=== PATIENT | female | born 1975 | race Caucasian/White ===

== ENCOUNTER 2021-06-20 16:31 | Emergency (ER) | payer BC ==
[2021-06-20 17:44] VITALS: BP 146/102; PULSE 82; RESP 18; TEMP 98.5
[2021-06-20] MEDS ORDERED: HYDROmorphone 1 MG/ML 1 ML SYRINGE IM STA (17:45)
--- NOTE | 2021-06-20 17:45 | ED ---
General Adult HPI - General Stated complaint: rt sided rib pain Time Seen by Provider: 06/20/21 17:42 Source: patient, RN notes reviewed Mode of arrival: ambulatory Limitations: no limitations - History of Present Illness Initial comments: 46-year-old female presents emergency Department chief complaint of right-sided rib pain. Patient states she was twisting, nor felt a pop. Patient states she's had a fracture which feels very similar. Patient has pain with movement, pain with deep inspiration. No major trauma no swelling or bruising of her abdomen. No chest pain otherwise no fevers chills - Related Data Allergies Allergy/AdvReac Type Severity Reaction Status Date / Time No Known Allergies Allergy Verified 06/20/21 17:41 Review of Systems ROS Statement: Those systems with pertinent positive or pertinent negative responses have been documented in the HPI. ROS Other: All systems not noted in ROS Statement are negative. General Exam General appearance: alert, in no apparent distress Head exam: Present: atraumatic, normocephalic, normal inspection Neck exam: Present: normal inspection, full ROM. Absent: tenderness, meningismus, lymphadenopathy Respiratory exam: Present: normal lung sounds bilaterally, chest wall tenderness. Absent: respiratory distress, wheezes, rales, rhonchi, stridor Cardiovascular Exam: Present: regular rate, normal rhythm, normal heart sounds. Absent: systolic murmur, diastolic murmur, rubs, gallop, clicks GI/Abdominal exam: Present: soft, normal bowel sounds. Absent: distended, tenderness, guarding, rebound, rigid Extremities exam: Present: full ROM, tenderness Back exam: Present: full ROM, tenderness Course Vital Signs 06/20/21 17:42 Temperature 98.5 F Pulse Rate 82 Respiratory 18 Rate Blood Pressure 146/102 O2 Sat by Pulse 97 Oximetry Medical Decision Making - Medical Decision Making X-ray is unremarkable. Patient has a right rib strain, will be discharged in stable condition return parameters discussed. Patient agrees to plan. Disposition Clinical Impression: Costal chondritis, Rib pain on right side Disposition: HOME SELF-CARE Condition: Stable Instructions (If sedation given, give patient instructions): Costochondritis (ED), Rib Fracture (ED) Additional Instructions: Please return to the Emergency Department if symptoms worsen or any other concerns. Is patient prescribed a controlled substance at d/c from ED?: No Referrals: None,Stated [Primary Care Provider] - 1-2 days Time of Disposition: 18:41
--- NOTE | 2021-06-20 18:36 | XR ---
EXAMINATION TYPE: XR ribs RT w pa chest xray DATE OF EXAM: 06/20/2021 COMPARISON: NONE HISTORY: Rib pain TECHNIQUE: 5 views FINDINGS: Heart and mediastinum are normal. Lungs are clear of consolidation. There are no hilar mass es. Ribs appear intact. There is no pleural effusion or pneumothorax. IMPRESSION: Normal chest. Normal right ribs.
[2021-06-20] MEDS ORDERED: ACET/COD 300 MG/30 MG STARTER PACK 6 TAB BTL PO STA (18:41)
== END 2021-06-20 18:51 | disposition home or self-care (01) ==
LOC: EC 16:31
DX: M94.0 Chondrocostal junction syndrome [Tietze] (principal); R07.81 Pleurodynia
CPT/HCPCS: 71101; 99283; 96372; J1170